=== PATIENT | female | born 1955 ===

== ENCOUNTER 2020-01-25 23:19 | Emergency (ER) | payer SELFPAY ==
[~2020-01-25] VITALS: Ht 149.9 cm; Wt 80.0 kg
[2020-01-25 23:24] VITALS: BP 161/68
== END 2020-01-26 00:36 | disposition home or self-care (01) ==
LOC: ED 01-26 00:05
DX: T59.81 Toxic effect of smoke (principal); I10 Essential (primary) hypertension; Y92.89 Other specified places as the place of occurrence of the external cause
CPT/HCPCS: 99281